=== PATIENT | female | born 1995 | race Caucasian/White ===

== ENCOUNTER 2016-11-23 12:55 | Emergency (ER) | payer OTHER ==
[~2016-11-23] VITALS: Ht 160 cm; Wt 67.5 kg
[2016-11-23 13:15] VITALS: Ht 160 cm; Wt 67.5 kg
--- NOTE | 2016-11-23 17:18 | ERD ---
ER Documentation Chief Complaint Date/Time DATE: 11/23/16 TIME: 17:15 Chief Complaint BURNING SENSATION ON BILATERAL HANDS, CUT HOT PEPPERS YESTERDAY HPI This is a 21-year-old female with no significant past medical history states that she is currently . States that she started to feel a burning sensation of her left hand because she was cutting jalapenos. States that lasted for hours and it started to radiate to her left wrist however currently states that it is resolved. Reports that she is right-handed and states that the left-handed was affected with this burning sensation she was holding the jalapeno peppers while cutting it with a knife with her right hand. Denies any fever, chills, injuries, numbness or tingling, weakness. ROS All systems reviewed and are negative except as per history of present illness. PMhx/Soc Medical and Surgical Hx: pt denies Medical Hx, pt denies Surgical Hx Hx Alcohol Use: No Hx Substance Use: No Hx Tobacco Use: No Smoking Status: Never smoker Physical Exam Vitals Vital Signs Date Time Temp Pulse Resp B/P Pulse Ox O2 Delivery O2 Flow Rate FiO2 11/23/16 13:15 98.5 62 16 99/60 99 Physical Exam Const: [id number], well-nourished. In no acute distress. Head: Atraumatic, normocephalic Eyes: Normal Conjunctiva without injection ENT: Normal external ear, nose and mouth. Neck: Full range of motion. No meningismus. Resp: Clear to auscultation bilaterally. No wheezing, rhonchi, rales, or crackles. No accessory muscle use. No retractions. Cardio: Regular rate and rhythm, no murmurs Skin: No petechiae or rashes Back: No midline tenderness. No CVA tenderness. Ext: No cyanosis, or edema. Full range of motion of patient's bilateral hands with PIP, DIP, MCP joints. No tenderness to palpation of the joint spaces. No erythema, edema, fluctuance, induration noted. Cap refill less than 2 seconds. Distal pulses intact bilaterally. Neur: Awake and alert. Normal gait and coordination. Muscle strength 5/5. Sensation intact bilaterally. Psych: Normal Mood and Affect Procedures/MDM This is a 21-year-old female with no significant past medical history presents the ED complaining of left hand burning sensation after cutting hot peppers. Patient is afebrile and nontoxic-appearing. Patient has normal vital signs. At this time patient stated that she currently is no longer feeling any burning sensation to her left hand. States that it is now resolved. Patient was reassured that the hot peppers are spicy probably gave the burning sensation to her left hand. Instructed patient that next time she can cut the hot peppers with gloves. Patient's extremity symptoms have stabilized while they have been evaluated in the department and are appropriate for outpatient follow up. No evidence of fractures, dislocations, compartment syndrome, neurologic injury, vascular injury, open joint, open fracture, tendon laceration, septic arthritis , osteomyelitis, DVT, foreign body, or other emergent conditions. Follow up with primary care physician in 1-2 days. Instructed patient to return to the ED sooner for any worsening symptoms. Patient's questions were answered. Patient understood and agreed with discharge plan. Patient discharged stable. Departure Diagnosis: Primary Impression: Burning sensation Additional Impression: Hand discomfort Laterality: left Qualified Code: M79.642 - Pain of left hand Condition: Stable Patient Instructions: Parts of a Hand, Standard Precautions: Handwashing Referrals: [facility] YOU HAVE RECEIVED A MEDICAL SCREENING EXAM AND THE RESULTS INDICATE THAT YOU DO NOT HAVE A CONDITION THAT REQUIRES URGENT TREATMENT IN THE EMERGENCY DEPARTMENT. FURTHER EVALUATION AND TREATMENT OF YOUR CONDITION CAN WAIT UNTIL YOU ARE SEEN IN YOUR DOCTORS OFFICE WITHIN THE NEXT 1-2 DAYS. IT IS YOUR RESPONSIBILITY TO MAKE AN APPOINTMENT FOR FOLOW-UP CARE. IF YOU HAVE A PRIMARY DOCTOR --you should call your primary doctor and schedule an appointment IF YOU DO NOT HAVE A PRIMARY DOCTOR YOU CAN CALL OUR PHYSICIAN REFERRAL HOTLINE AT IF YOU CAN NOT AFFORD TO SEE A PHYSICIAN YOU CAN CHOSE FROM THE FOLLOWING [facility] [address] [facility]. [facility] [address] [facility]. [facility] [address] [facility]. [facility] [address] [facility] [facility] [address] [facility]. [facility]. [address] [facility]. [facility] YOU HAVE RECEIVED A MEDICAL SCREENING EXAM AND THE RESULTS INDICATE THAT YOU DO NOT HAVE A CONDITION THAT REQUIRES URGENT TREATMENT IN THE EMERGENCY DEPARTMENT. FURTHER EVALUATION AND TREATMENT OF YOUR CONDITION CAN WAIT UNTIL YOU ARE SEEN IN YOUR DOCTORS OFFICE WITHIN THE NEXT 1-2 DAYS. IT IS YOUR RESPONSIBILITY TO MAKE AN APPOINTMENT FOR FOLOW-UP CARE. IF YOU HAVE A PRIMARY DOCTOR --you should call your primary doctor and schedule and appointment IF YOU DO NOT HAVE A PRIMARY DOCTOR YOU CAN CALL OUR PHYSICIAN REFERRAL HOTLINE AT . IF YOU CAN NOT AFFORD TO SEE A PHYSICIAN YOU CAN CHOSE FROM THE FOLLOWING [facility] INSTITUTIONS: [facility] [address] [place] [address] [facility] [address] [place] [address] [facility] [address] [place] [address] [facility] URGENT CARE/SPECIALTIES Additional Instructions: Your burning sensation of hand is likely due to cutting jalepenos. FOLLOW UP WITH YOUR PRIMARY CARE PHYSICIAN TOMORROW.Return to this facility if you are not improving as expected. DOMINGO FAN PA-C Nov 23, 2016 17:18
== END 2016-11-23 14:35 | disposition home or self-care (01) ==
LOC: FTE 12:55
DX: O99.89 Other specified diseases and conditions complicating pregnancy, childbirth and the puerperium (principal); M79.642 Pain in left hand; R20.8 Other disturbances of skin sensation; Z3A.20 20 weeks gestation of pregnancy
CPT/HCPCS: 99282